=== PATIENT | female | born 1980 | race Caucasian/White ===

== ENCOUNTER 2020-01-07 12:53 | Emergency (ER) | payer MEDICAID ==
[~2020-01-07] VITALS: Ht 170.2 cm; Wt 74.7 kg
[2020-01-07 13:01] VITALS: BP 109/77
--- NOTE | 2020-01-07 13:53 | NUR ---
PT STATES SHE HAD A BM THIS MORNING THAT HAD "BLACK CHUNKS WITH RED BLOOD". PT ALSO SAYS THAT SHE ATE LAST NIGHT HER ABD WAS REALLY PAINFUL ON THE LEFT SIDE AND IT WAS "HARD". PT IS FROM [place] AND PLANNED ON HAVING A COLONOSCOPY WHEN SHE GOT HOME BUT TODAY WHEN SHE HAD THE DISCOLORED BM DECIDED THAT SHE SHOULD COME IN. SHE ALSO FEELS MORE TIRED THAN USUAL. PT IS RESTING IN [facility]. VSS. CONNECTED TO MONITORING EQUIPMENT. WARM BLANKET PROVIDED.
[2020-01-07 14:22] LABS: BASOPHILS # (AUTO) 0.06 x10^3/uL (0-0.1); BASOPHILS % (AUTO) 1 % (0-1); EOSINOPHILS # (AUTO) 0.09 x10^3/uL (0-0.4); EOSINOPHILS % (AUTO) 1 % (1-7); LYMPHOCYTES # (AUTO) 2.49 x10^3/uL (1-3.4); LYMPHOCYTES % (AUTO) 21 % (22-44); MD NO; MEAN CORPUSCULAR HEMOGLOBIN 30.5 pg (27.0-34.8); MEAN CORPUSCULAR HGB CONC 33.9 g/dL (32.4-35.8); MEAN CORPUSCULAR VOLUME 89.9 fL (80-100); MEAN PLATELET VOLUME 7.8 fL (7.4-10.4); MONOCYTES # (AUTO) 0.52 x10^3/uL (0.2-0.8); MONOCYTES % (AUTO) 4 % (2-9); NEUTROPHILS # (AUTO) 8.66 x10^3/uL (1.8-6.8); NEUTROPHILS % (AUTO) 73 % (42-75); PLATELET COUNT 246 x10^3/uL (130-400); RED BLOOD COUNT 5.05 x10^6/uL (3.82-5.3); RED CELL DISTRIBUTION WIDTH 13.2 % (9.6-15.2)
[2020-01-07 14:28] LABS: ALANINE AMINOTRANSFERASE 28 U/L (12-78); ALBUMIN 3.9 g/dL (3.4-5.0); ANION GAP 8 mmol/L (5-15); CALCIUM 8.8 mg/dL (8.5-10.1); CHLORIDE 112 mmol/L (98-107); CREATININE 0.73 mg/dL (0.55-1.02)
[2020-01-07 14:32] LABS: ALKALINE PHOSPHATASE 111 U/L (45-117); BILIRUBIN,TOTAL 0.4 mg/dL (0.2-1.0); TOTAL PROTEIN 7.2 g/dL (6.4-8.2)
[2020-01-07 14:34] LABS: MICROSCOPIC AUTO
== END 2020-01-07 15:16 | disposition home or self-care (01) ==
LOC: ED 15:09
DX: K64.4 Residual hemorrhoidal skin tags (principal); K92.1 Melena; R10.32 Left lower quadrant pain; R19.7 Diarrhea, unspecified; F17.200 Nicotine dependence, unspecified, uncomplicated; Z90.49 Acquired absence of other specified parts of digestive tract
CPT/HCPCS: 36415; 80053; 81001; 84703; 85025; 99283